=== PATIENT | female | born 1930 | race Caucasian/White ===

== ENCOUNTER 2016-04-08 14:50 | Inpatient (IN) | payer MEDICAID ==
[~2016-04-08] VITALS: Ht 152.4 cm; Wt 86.2 kg
[2016-04-08 15:03] VITALS: BP 153/82
[2016-04-08] MEDS ORDERED: ASPIRIN81 M1 PO (15:06)
--- NOTE | 2016-04-08 16:02 | NUR ---
PT AMBULATED TO BED 8 WITH ASSISTANCE.
--- NOTE | 2016-04-08 16:10 | NUR ---
PATIENT PRESENTS TO ED WITH LEFT FACIAL PAIN AND NUMBNESS, RADIATES TO TOTAL FACE AND HEAD . PT STATES IT BEGAN YESTERDAY MORNING AROUND 0800. DENIES N/V/D; SKIN IS PINK/WARM/DRY; AAOX4 WITH EVEN AND STEADY GAIT; LUNGS CLEAR BL; HR EVEN AND REGULAR; PATIENT STATES FACIAL PAIN OF 10/10 AT THIS TIME, CHEST PAIN 7/10; VSS; PATIENT POSITIONED FOR COMFORT; HOB ELEVATED; BEDRAILS UP X2; BED DOWN. ER MD MADE AWARE OF PT STATUS.
--- NOTE | 2016-04-08 16:25 | NUR ---
EKG DONE AT BEDSIDE AND GIVEN TO
--- NOTE | 2016-04-08 16:45 | NUR ---
DR. CARTWRIGHT EVALUATING PATIENT AT BEDSIDE.
--- NOTE | 2016-04-08 17:02 | NUR ---
PT TAKEN TO CT
[2016-04-08] MEDS ORDERED: ACETAMINOPHEN 325 MG TAB PO PRN (18:45)
[2016-04-08] MEDS ORDERED: HYDROcodone/APAP 5/325 MG 1 TAB TAB PO PRN (18:45)
[2016-04-08] MEDS ORDERED: ONDANSETRON 4 MG/2 ML VIAL IVP PRN (18:45)
[2016-04-08] MEDS: NACL 0.9% 1,000 ML IV SCH (19:31)
--- NOTE | 2016-04-08 19:32 | NUR ---
Patient will be admitted to care of DR PATEL. Admited to TELE. Will go to [id number]. Belongings list completed. Report to AGUILAR PARSONS.
[2016-04-08 20:00] VITALS: BP 128/63
--- NOTE | 2016-04-08 20:00 | NUR ---
ADMITTED 85 Y/O FEMALE TO TELE VIA [facility] FROM ER AT 1940 PM WITH DX: FACIAL WEAKNESS AND GENERALIZED WEAKNESS. INITIAL ASSESSMENT, BODY CHECK AND ADMISSION INTERVENTION DONE. PATIENT AAO X 4, ABLE TO FOLLOW COMMAND AND MAKE NEEDS KNOWN AND AMBULATORY WITH CAR CHANGER. NO S/S OF DISTRESS OR SOB UPON ADMISSION. SKIN ALL INTACT. ONLY NOTED DARK DISCOLORATION TO BLE WITH C/O MODERATE PAIN. INSTRUCTED PATIENT/DAUGHTER TO UNIT/ENVIRONMENT. ALSO, DISCUSSED PLAN OF CARE, PAIN MANAGEMENT AND MEDICATION REGIMEN AND BOTH VERBALIZED UNDERSTANDING. PLACED PATIENT ON SAFETY/FALL PRECAUTIONS AND WILL CONTINUE TO MONITOR.
--- NOTE | 2016-04-08 20:40 | NUR ---
ADMINISTERED NORCO FOR C/O BLE PAIN MD'S ORDERED WITH EDUCATION GIVEN. ALSO, GAVE ONE PAIR OF TUNA SANDWICH AND WATER PER REQUEST. PATIENT CONSUMED 100 % AND RESTED COMFORTABLY IN BED. ALL NEEDS ARE ATTENDED AND WILL CONTINUE TO MONITOR.
--- NOTE | 2016-04-08 22:00 | NUR ---
ASSISTED PATIENT TO THE RESTROOM AND BACK TO BED SAFELY. PATIENT TOLERATED ACTIVITY WELL. OBTAINED THE URINE SAMPLE AND SENT TO THE LAB. KEPT PATIENT IN COMFORTABLE POSITION/WARM AND WILL CONTINUE TO MONITOR.
[2016-04-08] MEDS ORDERED: PNEUMOCOCCAL VACCINE 23 MCG/0.5 ML VIAL IMVAC PRN (22:50)
[2016-04-08] MEDS ORDERED: INFLUENZA VIRUS VACCINE QUAD 0.5 ML SYR IMVAC PRN (22:50)
[2016-04-09] VITALS: BP 128/57
--- NOTE | 2016-04-09 01:03 | NUR ---
PATIENT RESTED WELL ON THE BED. V/S REMAINED WNL AND NO S/S OF DISTRESS NOTED. WILL CONTINUE TO MONITOR.
[2016-04-09 04:00] VITALS: BP 144/77
--- NOTE | 2016-04-09 04:08 | NUR ---
PATIENT IS CLINICALLY STABLE AND NO APPARENT DISTRESS NOTED. WILL CONTINUE TO MONITOR.
[2016-04-09] MEDS: NACL 0.9% 1,000 ML IV SCH ×2 (04:14→20:40)
--- NOTE | 2016-04-09 07:30 | NUR ---
RECEIVED ON BED AAOX4. NO SOB NOTED. NO C/O PAIN AT THIS TIME. IV TO LT AC PATENT AND INTACT. SLIGHT FACIAL DROOP NOTED. CHEST CLEAR. ABDOMEN SOFT, BOWEL SOUNDS PRESENT. NO EDEMA NOTED. INSTRUCTED PT TO CALL FOR ASSISTANCE, CALL LIGHT WITHIN REACH. PT VERBALIZED UNDERSTANDING.
--- NOTE | 2016-04-09 07:30 | NUR ---
ENDORSED PLAN OF TO YOSI Marina RN, AT BEDSIDE. PATIENT RESTED WELL THROUGHOUT THE SHIFT AND REMAINED IN STABLE CONDITION WITHOUT APPARENT DISTRESS NOTED.
[2016-04-09 08:00] VITALS: BP 145/76
--- NOTE | 2016-04-09 08:58 | NUR ---
PATIENT HAS BEEN SCREENED AND CATEGORIZED MODERATE NUTRITION RISK. PATIENT WILL BE SEEN WITHIN 3-5 DAYS OF ADMISSION. 04/11/16-04/13/[address]
--- NOTE | 2016-04-09 09:00 | NUR ---
ASSISTED PT TO THE BATHROOM WITH MINIMAL ASSIST. ACTIVITY TOLERATED WELL.
[2016-04-09] MEDS ORDERED: NITROGLYCERIN 0.4 MG TAB SL PRN (09:55)
[2016-04-09] MEDS ORDERED: ASPIRIN 81 MG TAB.CHEW PO SCH (10:00)
[2016-04-09] MEDS ORDERED: ATORVASTATIN 20 MG TAB PO SCH (10:00)
--- NOTE | 2016-04-09 10:25 | NUR ---
ECHO ON GOING AT THE BEDSIDE.
[2016-04-09] MEDS ORDERED: LISINOPRIL 5 MG TAB PO SCH (10:30)
[2016-04-09] MEDS ORDERED: METOPROLOL 25 MG TAB PO SCH (10:30)
[2016-04-09] MEDS: DOCUSATE SODIUM 100 MG GELCAP PO SCH (10:49)
[2016-04-09 12:00] VITALS: BP 126/69
[2016-04-09] MEDS ORDERED: methylPREDNISolone 4 MG TAB PO SCH (13:30)
[2016-04-09] MEDS ORDERED: ACYCLOVIR 200 MG CAP PO SCH (13:35)
[2016-04-09] MEDS ORDERED: predniSONE 10 MG TAB PO SCH (13:45)
--- NOTE | 2016-04-09 14:00 | NUR ---
PT SEEN BY DR. GIRARD WITH ORDERS.
--- NOTE | 2016-04-09 14:45 | NUR ---
PHYSICAL THERAPY ON GOING AT THE BEDSIDE.
[2016-04-09 16:00] VITALS: BP 138/72
--- NOTE | 2016-04-09 16:55 | NUR ---
PT AWAKE, TALKING TO FAMILY AT THE BEDSIDE. NO COMPLAINTS MADE.
[2016-04-09] MEDS: ACYCLOVIR 200 MG CAP PO SCH ×2 (17:56→20:41)
--- NOTE | 2016-04-09 19:08 | NUR ---
PT AWAKE, WATCHING TV. NO SOB NOTED. NO COMPLAINTS MADE. WILL ENDORSE TO NEXT SHIFT NURSE FOR CONTINUITY OF CARE.
[2016-04-09 20:00] VITALS: BP 143/71
--- NOTE | 2016-04-09 20:20 | NUR ---
RECEIVED REPORT FROM CHARGE NURSE, MATTHEW, FOR CONTINUITY OF CARE. PATIENT RESTING IN BED. NO RESPIRATORY DISTRESS, SOB, OR DISCOMFORT. INITIAL ASSESSMENT AND BODY CHECK DONE. PATIENT IS AOX4, SOME DISCOLORATION TO BLE, FACIAL DROOPING NOTED, IV ACCESS TO LEFT AC 20G, PATENT. PATIENT ABLE TO AMBULATE WITH STEADY GAIT. DISCUSSED PLAN OF CARE, MEDICATION REGIMENT, AND PAIN MANAGEMENT WITH PATIENT. PATIENT VERBALIZED UNDERSTANDING. PLACED PATIENT ON SAFETY/FALL PRECAUTIONS. CALL LIGHT LEFT WITHIN REACH, WILL CONTINUE TO MONITOR.
[2016-04-09] MEDS: METOPROLOL 25 MG TAB PO SCH (20:41)
--- NOTE | 2016-04-09 22:04 | NUR ---
PATIENT IN BED, SLEEPING. NO RESPIRATORY DISTRESS, SOB, OR DISCOMFORT. CALL LIGHT LEFT WITHIN REACH, WILL CONTINUE TO MONITOR.
[2016-04-10] VITALS: BP 137/78
--- NOTE | 2016-04-10 00:55 | NUR ---
PATIENT ASLEEP. NO RESPIRATORY DISTRESS, SOB, OR DISCOMFORT. CALL LIGHT LEFT WITHIN REACH, WILL CONTINUE TO MONITOR.
--- NOTE | 2016-04-10 03:09 | NUR ---
PATIENT SLEEPING. NO RESPIRATORY DISTRESS, SOB, OR DISCOMFORT. CALL LIGHT LEFT WITHIN REACH, WILL CONTINUE TO MONITOR.
[2016-04-10 04:00] VITALS: BP 145/81
[2016-04-10] MEDS: ACYCLOVIR 200 MG CAP PO SCH ×4 (05:56→18:15)
--- NOTE | 2016-04-10 06:01 | NUR ---
PATIENT SITTING UP IN BED, RESTING, STATES BEING OKAY. NO RESPIRATORY DISTRESS, SOB, OR DISCOMFORT. CALL LIGHT LEFT WITHIN REACH, WILL CONTINUE TO MONITOR.
--- NOTE | 2016-04-10 07:19 | NUR ---
REPORT GIVEN TO DAY NURSE, ARIEL. PATIENT RESTING IN BED, STABLE. NO RESPIRATORY DISTRESS, SOB, OR DISCOMFORT. ALL NEEDS ATTENDED TO DURING SHIFT, CALL LIGHT LEFT WITHIN REACH.
--- NOTE | 2016-04-10 07:30 | NUR ---
REPORT RECEIVED AT BEDSIDE FROM GUTIERREZ HEBERT RN. PATIENT SITTING IN CHAIR , AWAKE,ALERT ,ORIENTED . DENIES PAIN , NO SOB NOTED. WITH IV FLUIDS INFUSING WELL . RT SIDE OF FACE AND LIP DROPPED SECONDARY TO LUBIN'S PALSY . SKIN INTACT. SEQ/DEVISES AT BEDSIDE. PATIENT CONTINENT B/B , BRP WITH MODERATE HELP. PLAN OF CARE DISCUSSED WITH HER , SHE VERBALIZED UNDERSTANDING. WILL CONTINUE MONITORING.
[2016-04-10 08:00] VITALS: BP 127/62
[2016-04-10] MEDS ORDERED: ASPIRIN 81 MG TAB.CHEW PO SCH (09:00)
[2016-04-10] MEDS ORDERED: predniSONE 10 MG TAB PO SCH (09:00)
[2016-04-10] MEDS ORDERED: ATORVASTATIN 20 MG TAB PO SCH (09:00)
[2016-04-10] MEDS ORDERED: LISINOPRIL 5 MG TAB PO SCH (09:00)
[2016-04-10] MEDS: METOPROLOL 25 MG TAB PO SCH (09:47)
[2016-04-10] MEDS: DOCUSATE SODIUM 100 MG GELCAP PO SCH (09:49)
[2016-04-10 12:00] VITALS: BP 126/70
[2016-04-10] MEDS ORDERED: ACYCLOVIR200 M1 PO (12:24)
[2016-04-10] MEDS ORDERED: DELTASONE10 M1 PO (12:24)
[2016-04-10] MEDS ORDERED: PREDNISONE10 M1 PO (12:24)
[2016-04-10] MEDS ORDERED: ATORVASTATIN CA20 MG PO (12:24)
[2016-04-10] MEDS ORDERED: PREDNISONE20 M1 PO (12:24)
[2016-04-10] MEDS ORDERED: PREDNISONE5 M1 PO (12:24)
--- NOTE | 2016-04-10 15:54 | NUR ---
JUS PATTEN ( PATIENT'S DAUGHTER ) CALLED AND LEAVE MESSAGE : HER MOTHER HAS DC ORDERS.
[2016-04-10 16:00] VITALS: BP 130/75
--- NOTE | 2016-04-10 18:15 | NUR ---
FAMILY CALLED SECOND TIME RE/DC ORDERS. THEY ARE COMING TO PICK HER UP
--- NOTE | 2016-04-10 19:30 | NUR ---
REPORT GIVEN AT BEDSIDE TO TAMIA CHAMBERS FOR CONTINUITY OF CARE.
--- NOTE | 2016-04-10 19:30 | NUR ---
PT IS AWARE THAT SHE WILL BE DISCHARGED I REMOVED HER IV LINE AND ID BANDS WERE REMOVED AND DISCARDED APPROPRIATELY,AND DISCHARGED INSTRUCTIONS REVIEWED WITH PATIENT AND DAUGHTER SHE AGREED TO SIGN HER MOTHERS DISCHARGE PAPERWORK AND PATIENT AGREED WELL. ALL DISCHARGE INSTRUCTIONS AND PRESCRIPTION MEDS GIVEN TO THE PATIENT AND FAMILY AND INSTRUCTED TO MAKE A FOLLOW UP APPT WITH PRIMARY CARE PHYSICIAN PATIENT AND FAMILY VERBALIZES UNDERSTANDING.DISCHARGE PACKET HANDED TO THE PATIENT AND FAMILY PT HAS ALL HER BELONGINGS.
--- NOTE | 2016-04-10 19:45 | NUR ---
TELEMONITOR HAS BEEN REMOVED.
--- NOTE | 2016-04-10 19:55 | NUR ---
PT HAS BEEN DISCHARGED HOME WAS WHEELED OUT IN WHEELCHAIR WITH THE ASSISTANCE OF LIBERTY SMILEY WITH FAMILY TO HER CAR.
== END 2016-04-10 19:55 | disposition home or self-care (01) | DRG 48 ==
LOC: MED 14:50 → MTU 18:24
PROVIDERS: ADMIT Family Medicine; ATTEND Family Medicine
DX: G51.0 Bell's palsy (principal); N17.0 Acute kidney failure with tubular necrosis; G90.9 Disorder of the autonomic nervous system, unspecified; F41.9 Anxiety disorder, unspecified; E83.51 Hypocalcemia; M94.0 Chondrocostal junction syndrome [Tietze]; M25.78 Osteophyte, vertebrae; E87.8 Other disorders of electrolyte and fluid balance, not elsewhere classified; E78.5 Hyperlipidemia, unspecified; I10 Essential (primary) hypertension; R73.03 Prediabetes; Z79.82 Long term (current) use of aspirin

== ENCOUNTER 2017-03-09 13:05 | Emergency (ER) | payer SELFPAY ==
[~2017-03-09] VITALS: Ht 154.9 cm; Wt 44.1 kg
[~2017-03-09 13:05] MED LIST: ACYC200C4 PO; ASPI81CT89 PO; ATOR20TA40 PO; PRED10TA5 PO; PRED10TA6 PO; PRED20TA6 PO; PRED5TAB8 PO
[2017-03-09 13:45] VITALS: BP 112/59
--- NOTE | 2017-03-09 13:48 | NUR ---
PT AMBULATES BACK TO THE LOBBY
--- NOTE | 2017-03-09 15:28 | NUR ---
ASSUMED PATIENT CARE, CONCUR WITH TRIAGE ASSESSMENT.
[2017-03-09] MEDS: DEXAMETHASONE 10 MG/ML VIAL IM ONE (17:03)
[2017-03-09] MEDS: KETOROLAC 30 MG/ML VIAL IM ONE (17:03)
[2017-03-09 18:09] VITALS: BP 136/70
--- NOTE | 2017-03-09 18:10 | NUR ---
DISPO AND MEDICAL DECISION MAKING, DC HOME WITH INSTRUCTIONS AND PRESCRIPTIONS. VSWNL.
== END 2017-03-09 18:10 | disposition home or self-care (01) ==
LOC: MED 13:05
DX: M16.12 Unilateral primary osteoarthritis, left hip (principal); M25.552 Pain in left hip; I10 Essential (primary) hypertension; Z79.899 Other long term (current) drug therapy
CPT/HCPCS: 73502; 96372; 99284; J1100; J1885

== ENCOUNTER 2017-08-24 15:25 | Emergency (ER) | payer MEDICAID ==
[~2017-08-24] VITALS: Ht 165.1 cm; Wt 83.9 kg
[2017-08-24 15:29] VITALS: BP 104/61
--- NOTE | 2017-08-24 15:37 | NUR ---
86 YO F BIB DTR W/ C/O GENERALIZED ABD PAIN RADIATING TO LOWER BACK WITH DIARRHEA SINCE LAST NIGHT. DTR REPORTS MILD FEVERS AND CHILLS. ALSO WITH RECENT POLYURIA. DENIES DIABETES. AAOX4. GCS 15. CMS INTACT. RR EVEN AND UNLABORED. LUNGS BILATERALLY CLEAR. ABD SOFT, NON-TENDER. ER MD NOTIFIED. PT NEEDS MET. SAFETY PRECAUTIONS IN PLACE. WILL CONTINUE TO MONITOR.
--- NOTE | 2017-08-24 15:38 | NUR ---
PT AMBULATED TO ER BED 04
[2017-08-24] MEDS ORDERED: ONDANSETRON 4 MG/2 ML VIAL IVP ONE (15:50)
[2017-08-24] MEDS ORDERED: MORPHINE SULFATE 2 MG/ML SYR IVP ONE (15:50)
[2017-08-24 16:07] LABS: BASOPHILS % (AUTO) 0.5 % (0.0-2.0); EOSINOPHILS % (AUTO) 0.7 % (0.0-4.0); HEMATOCRIT 37.9 % (36-48); HEMOGLOBIN 12.9 g/dL (12.0-16.0); LYMPHOCYTES # (AUTO) 1.3 K/uL (2.5-16.5); MEAN CORPUSCULAR HEMOGLOBIN 31 pg (27-31); MEAN CORPUSCULAR HGB CONC 34 g/dL (33-37); MONOCYTES # (AUTO) 0.7 K/uL (0.8-1.0); MONOCYTES % (AUTO) 11.2 % (1.7-9.3); NEUTROPHILS % (AUTO) 66.6 % (42.2-75.2); PLATELET COUNT (AUTO) 159 K/uL (140-450); RED BLOOD CELL COUNT(AUTO) 4.21 MIL/uL (4.20-5.40)
--- NOTE | 2017-08-24 16:35 | NUR ---
PT. UNABLE TO PROVIDE URINE AT THIS TIME, PROVIDED WITH A CUP OF WATER.
[2017-08-24 16:48] LABS: PROTHROMBIN TIME 11.5 secs (10.8-13.4)
[2017-08-24 16:56] LABS: ALBUMIN 3.2 g/dL (3.4-5.0); ASPARTATE AMINOTRANSFERASE 30 U/L (15-37); CARBON DIOXIDE 28.6 mmol/L (21-32); CHLORIDE 98 mmol/L (98-107); CREATININE 0.8 mg/dL (0.6-1.3); GLUCOSE 139 mg/dL (74-106); LIPASE 146 U/L (73-393); POTASSIUM 3.6 mmol/L (3.5-5.1); SODIUM SERUM 135 mmol/L (136-145); TOTAL BILIRUBIN 0.7 mg/dL (0.0-1.0); UREA NITROGEN, BLOOD 13 mg/dL (7-18)
[2017-08-24 17:09] LABS: APPEARANCE,URINE CLEAR (CLEAR); BILIRUBIN,URINE NEGATIVE (NEGATIVE); BLOOD, URINE TRACE-I (NEGATIVE); COLOR,URINE YELLOW (YELLOW); LEUKOCYTE ESTERASE ,URINE NEGATIVE (NEGATIVE); NITRITE, URINE NEGATIVE (NEGATIVE); PH,URINE 6.5 (5.0-9.0); UGLUCOSE NEGATIVE (NEGATIVE)
[2017-08-24 17:10] LABS: RBC,URINE 3-10 (FEW) /HPF (0-5); WBC,URINE 0-5 (RARE) /HPF (0-5)
[2017-08-24 17:51] VITALS: BP 108/53
--- NOTE | 2017-08-24 17:51 | NUR ---
Patient discharged with v/s stable. Written and verbal after care instructions given and explained. Patient alert, oriented and verbalized understanding of instructions. Ambulatory with steady gait. All questions addressed prior to discharge. ID band removed. Patient advised to follow up with PMD. Rx of BENTYL given. Patient educated on indication of medication including possible reaction and side effects. Opportunity to ask questions provided and answered.
== END 2017-08-24 17:51 | disposition home or self-care (01) ==
LOC: MED 15:25
DX: K52.9 Noninfective gastroenteritis and colitis, unspecified (principal); R35.0 Frequency of micturition; R53.1 Weakness; E11.9 Type 2 diabetes mellitus without complications; Z79.899 Other long term (current) drug therapy
CPT/HCPCS: 36415; 71045; 74176; 80053; 81001; 83605; 83690; 84484; 85025; 85610; 85730; 93005; 96374; 96375; 99285; J2270; J2405; Q0092

== ENCOUNTER 2019-09-15 17:34 | Emergency (ER) | payer MEDICAID ==
[~2019-09-15] VITALS: Ht 162.6 cm; Wt 104.3 kg
[~2019-09-15 17:34] MED LIST changes: +ASPI-1822 PO; -ASPI81CT89 PO
[2019-09-15 17:41] VITALS: BP 136/64
[2019-09-15] MEDS ORDERED: IBUPROFEN 600 MG TAB PO ONE (18:35)
[2019-09-15] MEDS ORDERED: ceFAZolin 1,000 MG VIAL ONE (18:45)
--- NOTE | 2019-09-15 19:02 | NUR ---
88 YEAR OLD FEMALE COMPLAINS OF BILATERAL LEG PAIN X MORNING. LEGS VISIBLE WITH INFLAMMATION, REDNESS, PAIN SINCE MORNING. BILATERAL PEDAL PULSE +2, CAP REFILL < 3 SEC. PT AOX4, BREATHING EVEN AND UNLABORED, SKIN WARM AND DRY. BED IN LOWEST POSITION, LOCKED, BED RAIL UPX1. ALLERGIES - NKA
--- NOTE | 2019-09-15 19:16 | NUR ---
report given to Beth Walter, transfer of care at this time
--- NOTE | 2019-09-15 19:20 | NUR ---
LAB AT BEDSIDE.
--- NOTE | 2019-09-15 19:21 | NUR ---
RECIVED REPORT FROM TONY SHEIKH. [facility].
[2019-09-15 19:23] LABS: BASOPHILS % (AUTO) 0.4 % (0.0-2.0); EOSINOPHILS # (AUTO) 0.4 K/uL (0-0.4); EOSINOPHILS % (AUTO) 7.8 % (0.0-4.0); HEMOGLOBIN 10.4 g/dL (12.0-16.0); LYMPHOCYTES # (AUTO) 1.3 K/uL (2.5-16.5); LYMPHOCYTES % (AUTO) 25.4 % (20.5-51.1); MEAN CORPUSCULAR HEMOGLOBIN 30 pg (27-31); MEAN CORPUSCULAR HGB CONC 33 g/dL (33-37); MEAN CORPUSCULAR VOLUME 92.8 fL (80-94); MONOCYTES # (AUTO) 0.7 K/uL (0.8-1.0); MONOCYTES % (AUTO) 14.4 % (1.7-9.3); NEUTROPHILS # (AUTO) 2.7 K/uL (1.8-7.7); PLATELET COUNT (AUTO) 213 K/uL (140-450); RED BLOOD CELL COUNT(AUTO) 3.45 MIL/uL (4.20-5.40); RED CELL DISTRIBUTION WIDTH 13.8 % (11.6-13.7); WHITE BLOOD COUNT (AUTO) 5.2 K/uL (4.8-10.8)
[2019-09-15 19:32] LABS: ANION GAP 9.6 (8-16); CARBON DIOXIDE 30.6 mmol/L (21-32); CHLORIDE 105 mmol/L (98-107); CREATININE 0.9 mg/dL (0.6-1.3); GLUCOSE 119 mg/dL (74-106); POTASSIUM 4.2 mmol/L (3.5-5.1); SODIUM SERUM 141 mmol/L (136-145); UREA NITROGEN, BLOOD 13 mg/dL (7-18)
--- NOTE | 2019-09-15 20:25 | NUR ---
BILAT LEG PAIN NOW @ 05/15 S/P RECIVING PAIN MEDICATION.
--- NOTE | 2019-09-15 20:27 | NUR ---
ERMD AT BEDSIDE.
--- NOTE | 2019-09-15 20:34 | NUR ---
IV removed, catheter intact and site benign. Applied folded 4x4 gauze and tape to stop bleeding.
[2019-09-15 20:35] VITALS: BP 133/72
--- NOTE | 2019-09-29 10:02 | NUR ---
LATE ENTRY- ANCEF IV DISCONTINUED AT 2034.
== END 2019-09-15 20:35 | disposition home or self-care (01) ==
LOC: MED 17:34
DX: L03.116 Cellulitis of left lower limb (principal); L03.115 Cellulitis of right lower limb; E11.9 Type 2 diabetes mellitus without complications
CPT/HCPCS: 36415; 80048; 85025; 93970; 99284; J0690; Q0092